=== PATIENT | female | born 1960 | race Caucasian/White ===

== ENCOUNTER 2016-12-15 10:18 | Inpatient (IN) | payer MEDICAID ==
[~2016-12-15] VITALS: Ht 167.6 cm; Wt 72.8 kg
[~2016-12-15 10:18] MED LIST: FLUO20CA19 PO
[2016-12-15] MEDS ORDERED: OXYC5CAP4 PO (11:43)
[2016-12-15] MEDS ORDERED: PENT100C2 PO (11:43)
[2016-12-15 12:27] LABS: BLOOD UREA NITROGEN 9 mg/dL (7-18)
[2016-12-15 12:33] LABS: IS PT STATUS REG ER OR PRE ER? YES
[2016-12-15] MEDS ORDERED: IBUPROFEN 200 MG TABLET PO ONE (13:00)
[2016-12-15] MEDS ORDERED: ONDANSETRON ODT 4 MG PO PRN (15:00)
[2016-12-15] MEDS ORDERED: ONDANSETRON 2MG/ML, 2ML IVPush PRN (15:00)
[2016-12-15] MEDS ORDERED: DOCUSATE 100 MG CAPSULE PO PRN (15:00)
[2016-12-15] MEDS ORDERED: MECLIZINE CHEWABLE 25 MG TAB PO PRN (15:00)
[2016-12-15] MEDS: TEMPLATE NON-FORMULARY MED. (Pentosan Polysulfate Sodium (Elmiron) 100 MG) PO SCH ×2 (16:00→21:00)
[2016-12-15 17:34] VITALS: BP 107/72
[2016-12-15] MEDS: SODIUM CHLORIDE 0.9% 1,000 ML IV SCH (18:38)
[2016-12-15 19:16] VITALS: BP_SYST 116; BP_SYST 119; BP_SYST 129; BP_DIAS 71; BP_DIAS 81; BP_DIAS 89
[2016-12-15] MEDS: ATORVASTATIN 20 MG TABLET PO SCH (21:02)
[2016-12-15] MEDS: PANTOPRAZOLE 40 MG IV IVPush SCH (21:02)
[2016-12-15] MEDS: ENOXAPARIN 40 MG/0.4 ML SQ SCH (21:02)
[2016-12-15 21:36] LABS: IS PT STATUS REG ER OR PRE ER? NO
[2016-12-15] MEDS: ASPIRIN 81 MG TABLET EC PO SCH (22:16)
[2016-12-16 03:33] VITALS: BP 113/72
[2016-12-16] MEDS: SODIUM CHLORIDE 0.9% 1,000 ML IV SCH ×2 (03:51→14:05)
[2016-12-16 06:25] LABS: BLOOD UREA NITROGEN 15 mg/dL (7-18)
[2016-12-16 06:34] LABS: IS PT STATUS REG ER OR PRE ER? NO
[2016-12-16] MEDS: TEMPLATE NON-FORMULARY MED. (Pentosan Polysulfate Sodium (Elmiron) 100 MG) PO SCH ×3 (07:48→20:27)
[2016-12-16] MEDS: ACETAMINOPHEN 325 MG TABLET PO PRN ×3 (07:48→16:00)
[2016-12-16] MEDS: OXYcodone IR 5MG TABLET PO PRN ×3 (07:48→16:00)
[2016-12-16] MEDS: FLUOXETINE 20 MG CAPSULE PO SCH (07:49)
[2016-12-16] MEDS: ASPIRIN 81 MG TABLET EC PO SCH (07:49)
[2016-12-16] MEDS: PANTOPRAZOLE 40 MG IV IVPush SCH ×2 (07:49→20:27)
[2016-12-16 09:07] VITALS: BP_SYST 110; BP_SYST 113; BP_SYST 149; BP_DIAS 71; BP_DIAS 75; BP_DIAS 81
[2016-12-16 16:53] VITALS: BP 110/72
[2016-12-16] MEDS ORDERED: PHENAZOPYRIDINE 200 MG TABLET PO PRN (18:00)
[2016-12-16 19:42] VITALS: BP 122/75
[2016-12-16] MEDS: ATORVASTATIN 20 MG TABLET PO SCH (20:26)
[2016-12-16] MEDS: ENOXAPARIN 40 MG/0.4 ML SQ SCH (20:27)
[2016-12-17] MEDS: SODIUM CHLORIDE 0.9% 1,000 ML IV SCH ×2 (00:19→10:16)
[2016-12-17 00:34] VITALS: BP 116/70
[2016-12-17] MEDS: ASPIRIN 81 MG TABLET EC PO SCH (06:17)
[2016-12-17] MEDS: OXYcodone IR 5MG TABLET PO PRN ×2 (06:17→12:21)
[2016-12-17] MEDS: ACETAMINOPHEN 325 MG TABLET PO PRN (06:17)
[2016-12-17 08:09] VITALS: BP 129/76
[2016-12-17] MEDS ORDERED: HYDROmorphone 1 MG/ML, 1ML IV PRN (08:30)
[2016-12-17] MEDS ORDERED: METOPROLOL 1 MG/ML, 5ML IV PRN (08:30)
[2016-12-17] MEDS ORDERED: ACETAMINOPHEN 325 MG TABLET PO PRN (08:30)
[2016-12-17] MEDS ORDERED: hydrALAzine 20 MG/ML, 1ML IV PRN (08:30)
[2016-12-17] MEDS ORDERED: FENTANYL PF 100 MCG/2ML IV PRN (08:30)
[2016-12-17] MEDS ORDERED: HALOPERIDOL 5 MG/ML IV PRN (08:30)
[2016-12-17] MEDS ORDERED: MEPERIDINE/PF 25MG/0.5ML IVPush PRN (08:30)
[2016-12-17] MEDS ORDERED: OXYcodone 5 MG/5 ML ORAL.SOL UDC PO PRN (08:30)
[2016-12-17] MEDS ORDERED: MIDAZOLAM 1 MG/ML, 2ML ONE (08:30)
[2016-12-17] MEDS ORDERED: FENTANYL PF 250 MCG/5ML ONE (08:31)
[2016-12-17] MEDS ORDERED: PROPOFOL 10 MG/ML, 20ML ONE (08:42)
[2016-12-17] MEDS: TEMPLATE NON-FORMULARY MED. (Pentosan Polysulfate Sodium (Elmiron) 100 MG) PO SCH (09:00)
[2016-12-17] MEDS: FLUOXETINE 20 MG CAPSULE PO SCH (10:16)
[2016-12-17] MEDS: PANTOPRAZOLE 40 MG IV IVPush SCH (10:16)
[2016-12-17 14:02] VITALS: BP 127/78
[2016-12-17] MEDS ORDERED: PANT20TA2 PO (14:40)
== END 2016-12-17 16:10 | disposition home or self-care (01) | DRG 309 ==
LOC: ED 13:43 → EDIP 14:11 → 5SO 17:26 → DCLOUNGE 12-17 15:44
PROVIDERS: ADMIT Internal Medicine; ATTEND Internal Medicine
PROC: 0DB28ZX Excision of Middle Esophagus, Via Natural or Artificial Opening Endoscopic, Diagnostic (ICD-10-PCS; principal; 2016-12-17 09:00)
DX: I49.1 Atrial premature depolarization (principal); F11.20 Opioid dependence, uncomplicated; G90.8 Other disorders of autonomic nervous system; R00.2 Palpitations; R42 Dizziness and giddiness; R55 Syncope and collapse; F41.9 Anxiety disorder, unspecified; G89.29 Other chronic pain; I10 Essential (primary) hypertension; J44.9 Chronic obstructive pulmonary disease, unspecified; N32.89 Other specified disorders of bladder; N30.10 Interstitial cystitis (chronic) without hematuria; K22.4 Dyskinesia of esophagus; R13.10 Dysphagia, unspecified; M54.9 Dorsalgia, unspecified; D75.89 Other specified diseases of blood and blood-forming organs; R82.71 Bacteriuria; K21.9 Gastro-esophageal reflux disease without esophagitis; R39.82 Chronic bladder pain; F32.9 Major depressive disorder, single episode, unspecified; Z88.8 Allergy status to other drugs, medicaments and biological substances; Z88.1 Allergy status to other antibiotic agents; Z91.018 Allergy to other foods; Z88.0 Allergy status to penicillin; Z91.013 Allergy to seafood; Z80.52 Family history of malignant neoplasm of bladder; Z82.0 Family history of epilepsy and other diseases of the nervous system; Z82.5 Family history of asthma and other chronic lower respiratory diseases; Z83.3 Family history of diabetes mellitus; Z87.891 Personal history of nicotine dependence; Z79.899 Other long term (current) drug therapy; Z90.710 Acquired absence of both cervix and uterus; Z90.89 Acquired absence of other organs; Z84.1 Family history of disorders of kidney and ureter
CPT/HCPCS: 36415; 70450; 70551; 71020; 74220; 80048; 80061; 81001; 82040; 82728; 83540; 83550; 83735; 84439; 84443; 84466; 84484; 85025; 87086; 88305; 93005; 93306; 93880; J1650; J2250; J2704; J3010; C9113; J7030

== ENCOUNTER 2017-11-12 10:02 | Emergency (ER) | payer MEDICAID ==
[~2017-11-12] VITALS: Ht 167.6 cm; Wt 66.7 kg
[~2017-11-12 10:02] MED LIST changes: +OXYC5CAP2 PO; +PANT20TA2 PO; +PENT100C2 PO
[2017-11-12 10:12] VITALS: BP 126/86
[2017-11-12] MEDS ORDERED: PENT100C2 PO (10:48)
[2017-11-12] MEDS ORDERED: ATOR20TA PO (10:51)
[2017-11-12] MEDS ORDERED: HYDROcodone/APAP 5/325 TABLET ONE (10:56)
[2017-11-12] MEDS ORDERED: HYDROcodone/APAP 5/325 TABLET PO PRN (11:00)
== END 2017-11-12 11:57 ==
LOC: ED 11:45
DX: S92.912A Unspecified fracture of left toe(s), initial encounter for closed fracture (principal); G89.11 Acute pain due to trauma; E78.5 Hyperlipidemia, unspecified; Z87.891 Personal history of nicotine dependence; X58.XXXA Exposure to other specified factors, initial encounter; Y93.89 Activity, other specified; Y92.89 Other specified places as the place of occurrence of the external cause; Y99.8 Other external cause status
CPT/HCPCS: 99284

== ENCOUNTER 2018-12-04 11:16 | Emergency (ER) | payer MEDICAID ==
[~2018-12-04] VITALS: Ht 167.6 cm; Wt 60.5 kg
[~2018-12-04 11:16] MED LIST changes: +ATOR20TA PO
--- NOTE | 2018-12-04 13:03 | NUR ---
TO ROOM FROM LOBBY, GAIT SLOW AND STEADY
--- NOTE | 2018-12-04 13:30 | NUR ---
pt presented to ed with headache and dizziness x 3 days. pt a&ox4. pt placed in room and placed on bp and cont. pulse oximeter. assessment cmpleted. at bedside.
[2018-12-04] MEDS ORDERED: MECLIZINE CHEWABLE 25 MG TAB PO ONE (14:00)
[2018-12-04] MEDS ORDERED: MECLIZINE CHEWABLE 25 MG TAB ONE (14:15)
[2018-12-04] MEDS ORDERED: OXYC-302 PO (14:20)
[2018-12-04] MEDS ORDERED: LISI-170 PO (14:20)
[2018-12-04] MEDS ORDERED: DOCU100C33 PO (14:22)
[2018-12-04] MEDS ORDERED: ALBU18HF INH (14:22)
--- NOTE | 2018-12-04 14:22 | NUR ---
pt taken to mri.
[2018-12-04 14:24] LABS: ALANINE AMINOTRANSFERASE 20 U/L (12-78); ALBUMIN 3.7 g/dL (3.4-5.0); ANION GAP 8 mmol/L (5-15); CALCIUM 8.8 mg/dL (8.5-10.1); CHLORIDE 112 mmol/L (98-107); CREATININE 0.52 mg/dL (0.55-1.02)
[2018-12-04 14:26] LABS: ALKALINE PHOSPHATASE 35 U/L (45-117); BILIRUBIN,TOTAL 0.5 mg/dL (0.2-1.0); TOTAL PROTEIN 6.4 g/dL (6.4-8.2); TROPONIN I < 0.015 ng/mL (0.000-0.045)
[2018-12-04 14:32] LABS: BASOPHILS # (AUTO) 0.04 x10^3/uL (0-0.1); BASOPHILS % (AUTO) 0 % (0-1); EOSINOPHILS % (AUTO) 1 % (1-7); LYMPHOCYTES # (AUTO) 3.83 x10^3/uL (1-3.4); LYMPHOCYTES % (AUTO) 39 % (22-44); MD NO; MEAN CORPUSCULAR HEMOGLOBIN 22.4 pg (27.0-34.8); MEAN CORPUSCULAR HGB CONC 32.1 g/dL (32.4-35.8); MEAN CORPUSCULAR VOLUME 69.9 fL (80-100); MONOCYTES # (AUTO) 0.56 x10^3/uL (0.2-0.8); MONOCYTES % (AUTO) 6 % (2-9); NEUTROPHILS # (AUTO) 5.36 x10^3/uL (1.8-6.8); NEUTROPHILS % (AUTO) 54 % (42-75); PLATELET COUNT 298 x10^3/uL (130-400); RED BLOOD COUNT 5.18 x10^6/uL (3.82-5.3); RED CELL DISTRIBUTION WIDTH 15.4 % (9.6-15.2)
--- NOTE | 2018-12-04 15:04 | NUR ---
report given to soto mariscal
--- NOTE | 2018-12-04 15:16 | NUR ---
FIRST CONTACT WITH PT. PT REPORT INCREASED DIZZINESS WITH WALKING TO BATHROOM. DENIES N/WEAKNESS/CP/SOB. PT PWD; SITTING UP IN GURNEY, AWAKE/ALERT. SPO2 >90% ON RA. RR WNL. ERP MADE AWARE
[2018-12-04 15:17] VITALS: BP 132/80
--- NOTE | 2018-12-04 16:00 | NUR ---
PT "BORED" AND REQUSTING DC. ERP AWARE.
--- NOTE | 2018-12-04 16:17 | NUR ---
DC EDUCATION PROVIDED PT DEMONSTRATES UNDERSTANDING. PT AMBULATED STEADILY HOLDING SO ARM. PT DENIES CP/SOB/WEAKNESS/NAUSEA. SO TO TRANSPORT PT HOME. PT AWARE OF S/S OF WORSENING CONDITION AND IS AWARE TO RETURN TO ED IF THEY OCCURE.
== END 2018-12-04 16:20 | disposition home or self-care (01) ==
LOC: ED 14:52
DX: R42 Dizziness and giddiness (principal); R11.0 Nausea; E78.5 Hyperlipidemia, unspecified; F17.200 Nicotine dependence, unspecified, uncomplicated; Z88.0 Allergy status to penicillin; Z88.1 Allergy status to other antibiotic agents; Z88.8 Allergy status to other drugs, medicaments and biological substances; Z91.013 Allergy to seafood; Z91.018 Allergy to other foods
CPT/HCPCS: 36415; 70551; 71045; 80053; 83880; 84484; 85025; 93005; 99284

== ENCOUNTER 2019-08-12 13:25 | Emergency (ER) | payer MEDICAID ==
[~2019-08-12] VITALS: Ht 167.6 cm; Wt 60.3 kg
[~2019-08-12 13:25] MED LIST changes: +ALBU18HF INH; +DOCU100C33 PO; +LISI-170 PO; +OXYC-302 PO
--- NOTE | 2019-08-12 13:51 | NUR ---
FIRST CONTACT WITH PT. PT STATES "I HAVE FLUID IN MY EARS, MY PCP PUT ME ON STEROIDS AND A ZPAC AND I FINISHED THEM YESTERDAY BUT I'M STILL SICK, IT FEELS LIKE I HAVE ANOTHER HERNIA FROM COUGHING SO MUCH, I FEEL REALLY SHORT OF BREATH" PT C/O RIGHT EAR PAIN/ LLQ ABD PAIN WITH DIARRHEA/SOB. PT'S AOX4. RESPS EVEN AND UNLABORED. BP/SPO2 MONITORS IN PLACE. CALL LIGHT WITHIN REACH. WARM BLANCKET GIVEN AT THIS TIME.
--- NOTE | 2019-08-12 14:44 | NUR ---
PT RESTING IN [facility]. RESPS EVEN AND UNLABORED. BP/SPO2 MONITORS IN PLACE. CALL LIGHT WITHIN REACH.
--- NOTE | 2019-08-12 14:57 | NUR ---
PT TO XRAY AT THIS TIME.
[2019-08-12] MEDS ORDERED: PROMETHAZINE/COD. 10MG/6.25MG/5 ML ORAL SOL PO PRN (15:00)
--- NOTE | 2019-08-12 15:05 | NUR ---
PT BACK TO ROOM FROM XRAY AT THIS TIME.
[2019-08-12 15:12] VITALS: BP 111/69
--- NOTE | 2019-08-12 15:22 | NUR ---
MED ORDERED FROM PHARMACY AT THIS TIME.
--- NOTE | 2019-08-12 15:32 | NUR ---
PT WOULD LIKE TO TALK TO EDMD. EDMD NOTIFIED.
--- NOTE | 2019-08-12 15:34 | NUR ---
PT MEDICATED PER EMAR. PT TOLERATED WELL.
--- NOTE | 2019-08-12 15:50 | NUR ---
ROAD TEST PER EDMD ORDER COMPLETED. PT'S SAPO2 ABOVE 95% ALL THE TIME. EDMD NOTIFIED.
--- NOTE | 2019-08-12 16:19 | NUR ---
Patient given discharge instructions and they have confirmed that they understand the instructions. Patient ambulatory with steady gait.
== END 2019-08-12 16:20 | disposition home or self-care (01) ==
LOC: ED 13:59
DX: H92.03 Otalgia, bilateral (principal); R06.00 Dyspnea, unspecified; B34.9 Viral infection, unspecified; F17.200 Nicotine dependence, unspecified, uncomplicated; Z90.710 Acquired absence of both cervix and uterus
CPT/HCPCS: 71046; 93005; 99283

== ENCOUNTER 2020-03-22 20:17 | Emergency (ER) | payer MEDICAID ==
[~2020-03-22] VITALS: Ht 167.6 cm; Wt 58.0 kg
[2020-03-22 20:19] VITALS: BP 154/102
[2020-03-22] MEDS ORDERED: PROPARACAINE OPHTH 0.5%, 15ML ONE (21:19)
--- NOTE | 2020-03-22 22:19 | NUR ---
mri screen completed and faxed to mri
--- NOTE | 2020-03-22 22:37 | NUR ---
pt to MRI at this time
[2020-03-22] MEDS ORDERED: GADOTERATE 7.5 MMOL/15 ML SYR ONE (23:24)
--- NOTE | 2020-03-23 01:39 | NUR ---
pt wants to leave without CTA scan. AMA paperwork signed and added to paper chart. risks of leaving AMA discussed with pt and she accepts those risks.
== END 2020-03-23 01:52 | disposition left against medical advice (07) ==
LOC: ED 20:47
DX: H53.131 Sudden visual loss, right eye (principal); H02.401 Unspecified ptosis of right eyelid; F17.210 Nicotine dependence, cigarettes, uncomplicated
CPT/HCPCS: 70543; 70553; 99285; A9575